=== PATIENT | male | born 2000 | race Caucasian/White ===

== ENCOUNTER 2019-02-16 16:32 | Emergency (ER) | payer OTHER ==
[~2019-02-16] VITALS: Ht 180.3 cm; Wt 67.1 kg
--- NOTE | 2019-02-16 16:56 | ED Lower Extremity ---
General Stated Complaint: RT KNEE, FOOT AND JEREZ INJ Source: patient, family, RN notes reviewed History of Present Illness Date Seen by Provider: Feb 16, 2019 Time Seen by Provider: 16:52 Initial Comments Patient presents c/ c/o injuring his right knee and lower leg when he slipped on a diving board twisting it and falling. Onset: just prior to arrival Severity: moderate Pain/Injury Location: right knee Method of Injury: twisted (while on diving board) Modifying Factors: Worse With Movement; Improves With Rest Allergies and Home Medications Allergies Coded Allergies: cefaclor (Verified Allergy, Unknown, 02/16/19) Patient Home Medication List Home Medication List Reviewed: Yes Review of Systems Constitutional: see HPI Musculoskeletal: see HPI, other (right knee pain) All Other Systems Reviewed Negative Unless Noted: Yes (Negative excepted noted.) Past Qkxtahb-Lrvcgh-Pxeqmt Hx Patient Social History Recent Foreign Travel: No Contact w/Someone Who Travel: No Physical Exam Vital Signs Vital Signs - First Documented 02/16/19 16:45 Temp 99.9 Pulse 105 Resp 18 B/P (MAP) 129/84 (99) Pulse Ox 98 O2 Delivery Room Air Capillary Refill : Height, Weight, BMI Height: '" Weight: lbs. oz. kg; BMI Method: General Appearance: WD/WN, mild distress Cardiovascular: tachycardia Respiratory: no respiratory distress Knees: right knee bone tenderness (anterolateral), right knee pain, right knee swelling Neurologic/Psychiatric: no motor/sensory deficits, alert, normal mood/affect, oriented x 3 Skin: warm/dry, other ((+) abrasions RLE ( jerez and top of foot)) Progress/Results/Core Measures Results/Orders My Orders Orders - JULIANN FERRARO DO Knee 3 View Right (02/16/19 16:57) Dipht,Pertuss(Acell),Tet Adult (Boostrix (02/16/19 17:00) Ibuprofen Tablet (Motrin Tablet) (02/16/19 17:00) Knee Immobilizer (02/16/19 17:36) Ct Extremity Lower Right Wo (02/16/19 17:49) Vaccine Administration Single (02/16/19 ) Medications Given in ED Vital Signs/I&O 02/16/19 02/16/19 16:45 19:32 Temp 99.9 Pulse 105 75 Resp 18 16 B/P (MAP) 129/84 (99) 127/68 (87) Pulse Ox 98 99 O2 Delivery Room Air Room Air Diagnostic Imaging Diagonstic Imaging: Xray, CT Plain Films/CT/US/NM/MRI: knee ((+) tibial plateau fx) Departure Impression Primary Impression: Right knee injury Additional Impressions: Closed fracture of lateral portion of right tibial plateau Abrasion of multiple sites of right lower extremity Disposition: HOME, SELF-CARE Condition: Stable Departure-Patient Inst. Decision time for Depature: 17:38 Referrals: NO,LOCAL PHYSICIAN (PCP) Primary Care Physician ROSSY FRAGOSO MD Patient Instructions: Skin Abrasions (DC), Tibia Fracture (DC) Add. Discharge Instructions: NEED ORTHOPEDIC FOLLOW UP ZULLY. CHECK WITH YOUR INSURANCE COMPANY FOR WHO THEY RECOMMEND. RECOMMEND 600 mg OF IBUPROFEN EVERY 6 HOURS AND CAN ALSO TAKE 1000 mg OF TYLENOL EVERY 6 HOURS IF NEEDED FOR PAIN. DO NOT EXCEED 4000 mg OF TYLENOL IN A 24 HOUR PERIOD. JULIANN FERRARO DO Feb 16, 2019 16:56
[2019-02-16] MEDS ORDERED: TETANUS,DIPTH,PERTUSS P/F (BOOSTRIX) 0.5 ML VIAL IM ONE (17:00)
[2019-02-16] MEDS ORDERED: IBUPROFEN 600 MG (MOTRIN) TAB PO ONE (17:00)
--- NOTE | 2019-02-16 17:16 | Diagnostic Imaging Report ---
INDICATION: Fall, injury to right knee. TIME OF EXAM: 4:47 PM FINDINGS: Three views right knee were obtained. There appears to be some depression of the lateral tibial plateau on the AP view. Medial plateau appears to be intact. Distal femur appears to be intact. There is some fullness in the suprapatellar region on the lateral view suggestive of joint effusion. IMPRESSION: There are findings suggestive of a lateral tibial plateau fracture with some depression. CT may be useful for further characterization. Dictated by: Dictated on workstation # [id number]
[2019-02-16] MEDS ORDERED: DILTIAZEM IV FOR DRIP 125 MG in NS (IVPB) 100 ML IV SCH (17:30)
[2019-02-16] MEDS ORDERED: DILTIAZEM 25 MG/5 ML INJ (CARDIZEM) VIAL IVP ONE (17:30)
[2019-02-16] MEDS ORDERED: NS IV 1000 ML 1,000 ML IV SCH (18:00)
--- NOTE | 2019-02-16 18:38 | Diagnostic Imaging Report ---
PROCEDURE: CT right lower extremity without contrast. TECHNIQUE: Axially acquired CT was obtained through the right lower extremity without intravenous contrast. Coronal and sagittal reformations were also performed. Auto Exposure Controls were utilized during the CT exam to meet ALARA standards for radiation dose reduction. INDICATION: Right knee injury with suspected tibial plateau fracture. COMPARISON: Correlation is made with plain films earlier same day. FINDINGS: The distal femur is intact. The patella is intact. There is a fracture involving the lateral tibial plateau. There is a fracture line directed in the anteroposterior plane. The degree of depression of the lateral plateau is approximately 6-7 mm. Fracture line does violate the anterior and posterior cortex of the lateral plateau. The medial tibial plateau is intact. The fibula appears to be intact. There is a large lipohemarthrosis. IMPRESSION: Depressed lateral tibial plateau fracture with large lipohemarthrosis. Dictated by: Dictated on workstation # [id number]
[2019-02-16 19:32] VITALS: BP 127/68
== END 2019-02-16 19:32 | disposition home or self-care (01) ==
LOC: ER FS 16:34
DX: S82.121A Displaced fracture of lateral condyle of right tibia, initial encounter for closed fracture (principal); Z88.1 Allergy status to other antibiotic agents; Z23 Encounter for immunization; X58.XXXA Exposure to other specified factors, initial encounter
CPT/HCPCS: 73562; 73700; 90471; 90715